=== PATIENT | female | born 1995 | race Caucasian/White ===

== ENCOUNTER 2019-08-05 02:03 | Emergency (ER) | payer OTHER ==
[~2019-08-05] VITALS: Ht 165.1 cm; Wt 61.2 kg
[2019-08-05 03:04] VITALS: Ht 165.1 cm; Wt 61.2 kg
[2019-08-05 03:45] VITALS: BP 100/72
== END 2019-08-05 03:45 | disposition other institution (70) ==
LOC: ED 02:03
DX: Z02.89 Encounter for other administrative examinations (principal)